=== PATIENT | female | born 1965 | race Caucasian/White ===

== ENCOUNTER → 2019-08-12 | Outpatient (CLI) | payer OTHER ==
[2014-03-10 08:49] VITALS: BP 168/92
--- NOTE | 2019-08-12 14:02 | KCIC ---
MR of the right shoulder HISTORY: Right shoulder pain for one month. No known injury. TECHNIQUE: Routine multiplanar sequences are obtained. FINDINGS: The acromioclavicular joint is mildly degenerative. Mild motion degradation on exam. Rotator cuff thickening with signal compatible with tendinosis. No significant subdeltoid bursal effusion. Glenohumeral joint is mildly degenerative. Tear of the posterosuperior labrum with a degenerative morphology. No significant joint effusion. Biceps tendinosis. No acute fracture. No aggressive bone destruction. No acute soft tissue abnormality. IMPRESSION: 1. Rotator cuff tendinosis without measurable rupture. 2. Degenerative tear of the posterosuperior labrum. 3. Biceps tendinosis. Electronically signed by: Juarez Bourgeois MD (08/12/2019 1:59 PM) [facility]-KCIC[facility]
== END | disposition home or self-care (01) ==
LOC: KCIC MRI 10:20
PROVIDERS: ATTEND Orthopaedic Surgery Sports Medicine
DX: S43.491A Other sprain of right shoulder joint, initial encounter (principal); X58.XXXA Exposure to other specified factors, initial encounter; Y93.89 Activity, other specified; Y92.89 Other specified places as the place of occurrence of the external cause; Y99.8 Other external cause status
CPT/HCPCS: 73221

== ENCOUNTER 2019-09-08 05:47 | Day surgery (SDC) | payer OTHER ==
[~2019-09-08] VITALS: Ht 154.9 cm; Wt 72.1 kg
[~2019-09-08 05:47] MED LIST: ATOR10TA60 PO; DULO60CA6 PO; NAPR220T70 PO; ROPI1TAB4 PO
[2019-09-08] MEDS ORDERED: CLINDAMYCIN 900MG PREMIX 50 ML IV ONE (06:00)
[2019-09-08] MEDS ORDERED: fentaNYL PF VIAL 100 MCG/2 ML VIAL IV PRN ×2 (07:00)
[2019-09-08] MEDS ORDERED: PROCHLORPERAZINE 10 MG/2 ML VIAL. IV PRN (07:00)
[2019-09-08] MEDS ORDERED: MORPHINE SULFATE 2 MG/ML VIAL. IV PRN (07:00)
[2019-09-08] MEDS ORDERED: IV RINGERS,LACTATED 1000ML 1,000 ML IV SCH (07:00)
[2019-09-08] MEDS ORDERED: ONDANSETRON PF 4 MG/2 ML VIAL. IV PRN (07:00)
[2019-09-08] MEDS ORDERED: HYDROmorphone 2 MG/ML VIAL IV PRN (07:00)
[2019-09-08] MEDS ORDERED: fentaNYL PF VIAL 100 MCG/2 ML VIAL ONE (07:10)
[2019-09-08] MEDS ORDERED: ROPIVacaine 0.5% PF 20 ML VIAL. ONE (07:10)
[2019-09-08] MEDS ORDERED: DEXAMETHASONE SOD PHOS 4 MG/ML VIAL ONE ×2 (07:10→07:31)
[2019-09-08] MEDS ORDERED: PROPOFOL 20 ML IV ONE (07:10)
[2019-09-08] MEDS ORDERED: MIDAZOLAM HCL/PF 2 MG/2 ML VIAL. ONE (07:11)
[2019-09-08] MEDS ORDERED: EPINEPHrine VIAL 30 MG/30 ML VIAL ONE (07:25)
[2019-09-08] MEDS ORDERED: LIDOCAINE 1% PF 30 ML VIAL. ONE (07:25)
[2019-09-08] MEDS ORDERED: BUPIVACAINE MPF 0.5% 30 ML VIAL. ONE (07:25)
[2019-09-08] MEDS ORDERED: ROCURONIUM 50 MG/5 ML VIAL. ONE (07:28)
[2019-09-08] MEDS ORDERED: PHENYLEPHRINE 10 MG/ML VIAL. ONE (07:31)
[2019-09-08] MEDS ORDERED: ONDANSETRON PF 4 MG/2 ML VIAL. ONE (07:31)
--- NOTE | 2019-09-08 07:43 | DISCH ---
DISCHARGE INSTRUCTIONS Condition on Discharge Condition on Discharge: Stable Activity After Discharge Activity Instructions for Disc: Other, see below Other activity instructions: Arm to remain in sling Bathing Instructions: Shower-keep dressing dry Weight Bearing Status after Di: Non weight bearing Diet after Discharge Diet after Discharge: Regular Wound Incision Care Wound/Incision Care: Ice to area for comfort, Keep wound/cast CDI, Change dressing Contacting the DR. after DC Call your doctor for: Concerns you may have Follow-Up Follow up with: Phil in 2 weeks RAELI STALEY II, MD Sep 08, 2019 07:43
[2019-09-08] MEDS ORDERED: NEOSTIGMINE METHYLSULFATE 5 MG/5 ML SYRINGE. ONE (08:44)
[2019-09-08] MEDS ORDERED: GLYCOPYRROLATE 1 MG/5 ML VIAL. ONE (08:44)
[2019-09-08] MEDS ORDERED: KETOROLAC 30 MG/ML VIAL. ONE (08:47)
--- NOTE | 2019-09-08 08:55 | PDOC4 ---
Operative Note Operative Note Date of procedure: 09/08/2019 Surgeon: Amado Staley Palletizer: Israel Duran, certified emergency vehicle technician Preoperative diagnosis: Right shoulder rotator cuff tear Postoperative diagnosis: Same Procedure performed: Arthroscopic right shoulder rotator cuff repair Anesthesia: Gen. plus regional nerve block Findings: #1 Unremarkable cartilage at glenohumeral joint 2. Degenerative fraying at superior and posterior labrum 3. Leading edge of rotator cuff had fraying present on the intra-articular side and was thin on the bursal side 4. Remainder of rotator cuff unremarkable 5. No obvious biceps pathology Blood loss: 10mL Components inserted: [employer] Helacoil anchor Reason for procedure: Patient is a very pleasant woman who has had worsening right shoulder pain. Clinical and radiographic examination, including MRI were consistent with the preoperative diagnosis. She had tried physical therapy, anti-inflammatories, and an injection and these did not give her good relief. Due to her symptoms and dysfunction, we had a discussion of the risks, benefits, alternatives the above surgery and he wished to proceed. Description of procedure: Patient was greeted in the preoperative holding area where the correct extremity was verified and marked. They were taken to the preoperative holding area where the anesthesiology team placed a regional nerve block. The patient was then taken back to the operative suite and antibiotics were started as they were brought back. Once in the operative room, the patient was transferred gently supine to the operating room table after successful induction of a general anesthetic. After this, she was sat up in a beachchair position maintaining her C-spine in neutral position, large pad under his legs, she was secured to the bed. We then prepped and draped her right upper extremity and shoulder girdle in our usual sterile fashion, we conducted our standard preoperative timeout. I palpated and marked surface anatomy for my planned portal sites. I then used a spinal needle to localize a posterior superior portal and incised skin in accordance with this. After this, I introduced the blunt arthroscopic trocar into the glenohumeral joint followed by the camera. I used a spinal needle to localize an anterosuperior portal and incised skin in accordance with this. I then introduced my arthroscopic probe and conducted my diagnostic arthroscopy with the above-noted findings. After this, I repositioned the camera into the subacromial space and performed a bursectomy with combination of shaver and electrocautery device. I then identified the rotator cuff tear and I debrided the pathologic tendon and prepared my footprint. I then placed my helacoil anchor and shuttled limbs through in a simple configuration. I tied these down with arthroscopic knot- tying techniques. The tear was stable to probing and to gentle rotation of the arm. I then removed all loose bony debris and the excess arthroscopic fluid. I took my final pictures prior to this. After this, all the excess fluid and instrumentation was removed. The portals were closed with simple interrupted 3-0 nylon. Sterile dressing was applied followed by an abduction pillow sling. Patient tolerated surgery well. No complications. At the conclusion, she was laid supine and transferred gently supine to the recovery room cart and taken to the PACU in a stable and extubated condition. Postoperative plan is discharge her home, nonweightbearing for 6 weeks. Well get her started on physical therapy. She will follow up with me in 2 weeks, sooner should a problem arise. AMADO STALEY II, MD Sep 08, 2019 08:55
[2019-09-08] MEDS ORDERED: SEVOFLURANE 61 TO 120 MINUTES. IH ONE (09:02)
[2019-09-08] MEDS ORDERED: oxyCODONE/APAP 5/325 1 TAB TABLET PO ONE (09:45)
[2019-09-08] MEDS ORDERED: ONDA8TAB9 PO (09:55)
[2019-09-08] MEDS ORDERED: DOCU-109 PO (09:56)
[2019-09-08] MEDS ORDERED: OXYC-325 PO (09:56)
[2019-09-08 10:15] VITALS: BP 107/51
== END 2019-09-08 10:55 | disposition home or self-care (01) ==
LOC: SURG 05:47
PROVIDERS: ATTEND Orthopaedic Surgery Sports Medicine
DX: M75.111 Incomplete rotator cuff tear or rupture of right shoulder, not specified as traumatic (principal); M24.111 Other articular cartilage disorders, right shoulder; F32.9 Major depressive disorder, single episode, unspecified; E78.00 Pure hypercholesterolemia, unspecified; E66.9 Obesity, unspecified; Z68.30 Body mass index [BMI] 30.0-30.9, adult; Z87.891 Personal history of nicotine dependence; Z90.49 Acquired absence of other specified parts of digestive tract; Z87.39 Personal history of other diseases of the musculoskeletal system and connective tissue; Z90.710 Acquired absence of both cervix and uterus; Z90.721 Acquired absence of ovaries, unilateral; Z72.89 Other problems related to lifestyle
CPT/HCPCS: 29827; 64415; A7015; C1713; C1782; J0171; J1100; J1885; J2250; J2370; J2405; J2704; J2710; J2795; J3010; J3490

== ENCOUNTER → 2020-09-15 | Outpatient (CLI) | payer OTHER ==
[~2020-09-15] MED LIST changes: +DOCU-109 PO; +ONDA8TAB9 PO; +OXYC-325 PO
--- NOTE | 2020-09-15 14:08 | KCIC ---
Bilateral digital screening mammograms: Reason for examination: Routine screening. New baseline. Interpretation was made with the benefit of CAD. The skin and nipples show no abnormalities. No abnormal axillary lymph nodes are seen. The breast par enchyma shows scattered fibroglandular density. (Breast density: Category B.) There are no dominant m asses, suspicious calcifications or architectural distortions. Impression: No evidence of malignancy. Recommend routine screening. BI-RADS Category 1: Negative. "Our facility is accredited by the [employer] Mammography Program." This patient's information has been entered into a reminder system for the patient to be notified wit h the results of her examination and a target date for the next mammogram. Electronically signed by: Ree Figueroa MD (09/15/2020 2:06 PM) [id number]
== END ==
LOC: KCIC MAMMO 12:23
PROVIDERS: ATTEND Family Medicine
DX: Z12.31 Encounter for screening mammogram for malignant neoplasm of breast (principal)
CPT/HCPCS: 77067

== ENCOUNTER 2021-09-03 16:54 | Emergency (ER) | payer OTHER ==
[~2021-09-03] VITALS: Ht 154.9 cm; Wt 80.0 kg
[~2021-09-03 16:54] MED LIST changes: -DULO60CA6 PO; +DULO60CA7 PO
[2021-09-03] MEDS ORDERED: IBUPROFEN 200 MG TABLET. PO ONE (18:15)
[2021-09-03] MEDS ORDERED: oxyCODONE/APAP 10/325 1 TAB TABLET PO ONE (18:15)
--- NOTE | 2021-09-03 18:26 | RAD ---
Exam: Right wrist 3 views INDICATION: Fall, pain with deformity TECHNIQUE: Frontal, lateral oblique views of the right wrist Comparisons: None FINDINGS: Impacted comminuted intra-articular fracture of the distal radius. Ulnar styloid base fracture noted. Bone mineralization is normal. Diffuse soft tissue swelling surrounding the wrist. IMPRESSION: Impacted comminuted intra-articular fracture of the distal radius at the base of the ulnar styloid. Electronically signed by: Lucia Bowman MD (09/03/2021 6:24 PM) ADAL
[2021-09-03 18:30] VITALS: BP 106/60
[2021-09-03] MEDS ORDERED: OXYC1TAB15 PO (18:57)
--- NOTE | 2021-09-03 18:58 | PHYS DOC ---
Past Medical History Past Medical History: No Pertinent History Past Surgical History: Cholecystectomy, , Hysterectomy, Tonsillectomy, Other Additional Past Surgical Histo: BACK REPAIR, LEFT KNEE SCOPE, RIGHT WRIST Smoking Status: Current Every Day Smoker Alcohol Use: Rarely Drug Use: None General Adult EDM: Chief Complaint: MECHANICAL FALL HPI: HPI: Patient is a 56-year-old female presents emergency department with chief complaint of right wrist pain after a stumble and fall approximately 1 hour prior to arrival. Patient also complains of abrasions to her left knee. Patient denies hitting her head. Patient denies loss of consciousness. Patient reports she missed read a step coming out of a place of business and stumbled forward which caused her to fall. Patient reports a 1 out of 10 left knee pain at the abrasion site, reports a 10 out of 10 right wrist pain. Patient states she did not take pain medications or apply ice packs or try other pain relief methods other than holding her right wrist against her body prior to coming to the emergency department for evaluation. Patient denies numbness or tingling to her right hand or fingers. Denies left or right-sided elbow pain. Patient denies other physical complaints or physical concerns. Patient reports her last tetanus immunization was 3 years ago. Patient reports a past medical history of rheumatoid arthritis, chronic back and body joint pains, states she takes 5/325 mg Percocet daily for her pains. Review of Systems: Review of Systems: 14 body systems of review of systems have been reviewed. See HPI for pertinent positives and negative responses, otherwise all other systems are negative, nonpertinent or noncontributory. Constitutional: Negative except as outlined in HPI above. Skin: Negative except as outlined in HPI above. Eyes: Negative except as outlined in HPI above. HENT: Negative except as outlined in HPI above. Respiratory: Negative except as outlined in HPI above. Cardiovascular: Negative except as outlined in HPI above. GI: Negative except as outlined in HPI above. : Negative except as outlined in HPI above. Musculoskeletal: Negative except as outlined in HPI above. Integument: Negative except as outlined in HPI above. Neurologic: Negative except as outlined in HPI above. Endocrine: Negative except as outlined in HPI above. Lymphatic: Negative except as outlined in HPI above. Psychiatric: Negative except as outlined in HPI above. Heart Score: C/O Chest Pain: No Risk Factors: Risk Factors: DM, Current or recent (<one month) smoker, HTN, HLP, family history of CAD, obesity. Risk Scores: Score 0 - 3: 2.5% MACE over next 6 weeks - Discharge Home Score 4 - 6: 20.3% MACE over next 6 weeks - Admit for Clinical Observation Score 7 - 10: 72.7% MACE over next 6 weeks - Early Invasive Strategies Current Medications: Current Medications Medications (Trade) Dose Ordered Sig/Rocio Start Time Stop Time Status Last Admin Dose Admin Ibuprofen (Motrin) 600 mg 1X ONCE 09/03/21 18:15 09/03/21 18:16 DC 09/03/21 17:57 600 MG Oxycodone/ Acetaminophen (Percocet 10/325) 1 tab 1X ONCE 09/03/21 18:15 09/03/21 18:16 DC 09/03/21 17:57 1 TAB Allergies: Allergies: Allergies Coded Allergies Type Severity Reaction Last Updated Verified amoxicillin Allergy Intermediate Rash 09/08/19 No Physical Exam: PE: Constitutional: Well developed, well nourished, no acute distress, non-toxic appearance. 56-year-old female self splinting right wrist against trunk otherwise in no apparent distress. HENT: Normocephalic, atraumatic. Eyes: Conjunctiva normal, no discharge. Neck: Normal range of motion, no stridor. Cardiovascular: No cyanosis appreciated, distal cap refill less than 2 seconds. Lungs & Thorax: Patient is in no respiratory distress, no audible adventitious lung sounds appreciated. Abdomen: Nontender, no abnormalities noted. Skin: Warm, dry, no erythema, no rash. See extremity note for focused skin examination. Back: No tenderness, no deformities. Extremities: No tenderness, no cyanosis, no clubbing, ROM intact, no edema. Except for left knee, there is 2 abrasions to anterior kneecap skin surfaces without bleeding or infectious process appreciated. Full AROM/PROM of left knee hip and ankle joints. No crepitus appreciated. There is no swelling or deformity of the left lower extremity appreciated, 2+ dorsalis pedis pulses equal bilateral lower extremities, distal cap refill less than 2 seconds bilateral lower extremities. Deformity to right wrist radial aspect without abrasion of skin, limited passive range of motion of wrist related to pain, no loss of sensation to right fingers digits 1 through 5. Satisfactory flexion and extension of all fingers. Full passive range of motion of elbow joint, no pain to the elbow area. The skin of the right upper extremity is intact. 2+ radial pulses equal in bilateral upper extremities, distal cap refill less than 2 seconds equal bilateral upper extremities. Neurologic: Alert and oriented X 3, normal motor function, normal sensory function, no focal deficits noted. Psychologic: Affect normal, judgement normal, mood normal. Current Patient Data: Vital Signs: Vital Signs Date Time Temp Pulse Resp B/P (MAP) Pulse Ox O2 Delivery O2 Flow Rate FiO2 09/03/21 17:57 18 09/03/21 17:20 98.0 87 94/60 (71) 94 Room Air 98.0 EKG: EKG: [] Radiology/Procedures: Radiology/Procedures: REASON: Fall, pain with deformity PROCEDURE: WRIST 3V RIGHT Exam: Right wrist 3 views INDICATION: Fall, pain with deformity TECHNIQUE: Frontal, lateral oblique views of the right wrist Comparisons: None FINDINGS: Impacted comminuted intra-articular fracture of the distal radius. Ulnar styloid base fracture noted. Bone mineralization is normal. Diffuse soft tissue swelling surrounding the wrist. IMPRESSION: Impacted comminuted intra-articular fracture of the distal radius at the base of the ulnar styloid. Electronically signed by: Lucia Bowman MD (09/03/2021 6:24 PM) [facility] Course & Med Decision Making: Course & Med Decision Making Pertinent Labs and Imaging studies reviewed. (See chart for details) 56-year-old female, vital signs reviewed, presents to the emergency department concerning left knee abrasion and right wrist pain after a stumble and fall just prior to arrival. The patient's tetanus immunization status is up-to-date, no loss of sensation of the right upper extremity, radial and ulnar nerves sensation intact distal to right wrist injury. Will give p.o. pain medication, x-ray right wrist, ice pack to right wrist, cleanse and dress abrasions. X-ray concerning for intra-articular distal radial fracture and distal ulnar fracture. Will order sugar tong splint for right wrist, sling, discussed with patient splint care at home, ice packs 30 minutes on 30 minutes off while awake for the next 48 to 72 hours, strict follow-up with orthopedic surgeon, call tomorrow for an appointment, return to ER precautions and concerns were discussed, will prescribe additional Percocet medication for acute severe pain at home. Discussed abrasion care at home. Patient gave verbal understanding of and is amenable to ED discharge planning. Examined sugar tong wrist splint placed by ED nursing staff, right upper extremity is in anatomical position, is neurovascular intact, satisfactory splint placement, right upper extremity placed into sling. Vital signs within normal limits at discharge time. Discussed with the patient all findings and diagnostic testing as well as the need to follow-up with their primary care provider for further evaluation and treatment or return to the ED if any new or worsening symptoms. Strict return precautions were also discussed at length, the patient voiced understanding and agreement with the discharge planning. The patient was nontoxic in appearance, in no apparent distress, and hemodynamically stable at the time of disposition. Dragon Disclaimer: Dragon Disclaimer: This electronic medical record was generated, in whole or in part, using a voice recognition dictation system. Departure Departure Impression: Primary Impression: Closed fracture of right distal radius and ulna Qualified Codes: S52.501A - Unspecified fracture of the lower end of right radius, initial encounter for closed fracture; S52.601A - Unspecified fracture of lower end of right ulna, initial encounter for closed fracture Additional Impression: Abrasion, left knee, initial encounter Disposition: HOME / SELF CARE / HOMELESS Condition: GOOD Referrals: ALEXANDRE TRACEY MD (PCP) ARELI STALEY II, MD Patient Instructions: Abrasions, Arm Sling Use, [id number], Cast or Splint Care, Wrist Fracture Additional Instructions: You were seen today in the emergency department after a stumble and fall. You have suffered abrasions to your left knee and a fracture to your right wrist of the distal radius and ulnar bones. As we discussed, please cleanse abrasions daily and apply antibiotic ointment and Band-Aids until healed, watch for signs and symptoms of infection, please keep splint in place, apply ice packs 30 minutes on and 30 minutes off while awake for the next 48 to 72 hours. Please call email specialist Dr. Staley tomorrow for an appointment for reevaluation and ongoing care of your fractured right wrist. Please return to the emergency department for any loss of sensation of your thumb or fingers. Increased pain that is not responding to the oral pain medications. Or other concerns. Thank you for visiting our Emergency Department. It was a pleasure taking care of you today in the emergency department and we appreciate you trusting us with your care. If any additional problems come up don't hesitate to return to visit us. Please follow up with your primary care provider so they can plan additional care if needed and know about the problem that you had. If symptoms worsen come back to the Emergency Department. Any concerning symptoms that start such as chest pain, shortness of air, weakness or numbness on one side of the body, running high fevers or any other concerning symptoms return to the ER. EMERGENCY DEPARTMENT GENERAL DISCHARGE INSTRUCTIONS Thank you for coming to [facility] Emergency Department (ED) today and trusting us with you care. We trust that you had a positive experience in our Emergency Department. If you wish to speak to the department management, you may call the Director at [phone]. YOUR FOLLOW UP INSTRUCTIONS ARE FOLLOWS: 1. Do you have a private Doctor? If you do not have a private doctor, please ask for a resource list of physicians or clinics that may be able to assist you with follow up care. 2. The Emergency Physicain has interpreted your x-rays. The X-Ray specialist will also review them. If there is a change in the findings, you will be notified in 48 hours when at all possible. 3. A lab test or culture has been done, your results will be reviewed and you will be notified if you need a change in treatment. ADDITIONAL INSTRUCTIONS AND INFORMATION: 1. Your care today has been supervised by a physician who is specially trained in emergency care. Many problems require more than one evaluation for a complete diagnosis and treatment. We recommend that you schedule your follow up appointment as recommended to ensure complete treatment of you illness or injury. If you are unable to obtain follow up care and continue to have a problem, or if your condition worsens, we recommend that you return to the ED. 2. We are not able to safely determine your condition over the phone nor are we able to give sound medical advice over the phone. For these safety reasons, if you call for medical advice we will ask you to come to the ED for further evaluation. 3. If you have any questions regarding these discharge instructions please call the ED at [phone]. SAFETY INFORMATION: In the interest of safety, wellness, and injury prevention; we encourage you to wear your sealbelt, if you smoke; quite smoking, and we encourage family to use a protective helmet for bicycling and other sporting events that present an increased risk for head injury. IF YOUR SYMPTOMS WORSEN OR NEW SYMPTOMS DEVELOP, OR YOU HAVE CONCERNS ABOUT YOUR CONDITION; OR IF YOUR CONDITION WORSENS WHILE YOU ARE WAITING FOR YOUR FOLLOW UP APPOINTMENT; EITHER CONTACT YOUR PRIMARY CARE DOCTOR, THE PHYSICIAN WHOSE NAME AND NUMBER YOU WERE GIVEN, OR RETURN TO THE ED IMMEDIATELY. Scripts Oxycodone/Apap 5-325 (PERCOCET 5-325 MG TABLET ) 1 Each Tablet 1 TAB PO PRN Q6HRS PRN for SEVERE PAIN 7-10, #12 TAB 0 Refills Prov: PRINCESS SOSA APRN 09/03/21 PRINCESS SOSA APRN Sep 03, 2021 18:58
[2021-09-03] MEDS ORDERED: BACITRACIN TOPICAL OINT PACKET. TP ONE (19:00)
== END 2021-09-03 19:09 | disposition home or self-care (01) ==
LOC: ER 16:54
DX: S52.501A Unspecified fracture of the lower end of right radius, initial encounter for closed fracture (principal); S52.601A Unspecified fracture of lower end of right ulna, initial encounter for closed fracture; S80.212A Abrasion, left knee, initial encounter; F17.200 Nicotine dependence, unspecified, uncomplicated; Z88.1 Allergy status to other antibiotic agents; W18.39XA Other fall on same level, initial encounter; Y93.89 Activity, other specified; Y92.89 Other specified places as the place of occurrence of the external cause; Y99.8 Other external cause status
CPT/HCPCS: 29125; 73110; 99284